=== PATIENT | female | born 1970 | race American Indian/Alaskan Native ===

== ENCOUNTER 2021-07-23 08:13 | Day surgery (SDC) | payer OTHER ==
[~2021-07-23 08:13] MED LIST: SODIUM CHLORIDE 0.9% 1000 ML 1,000 ML IV SCH
--- NOTE | 2021-07-23 09:30 | Anesthesia Consultation ---
Anesthesia Consult and Med Hx Date of service: 07/23/21 - Airway Anesthetic Teeth Evaluation: Good ROM Head & Neck: Adequate Mental/Hyoid Distance: Adequate Mallampati Class: Class II Intubation Access Assessment: Good - Pre-Operative Health Status ASA Pre-Surgery Classification: ASA1 Proposed Anesthetic Plan: MAC - Pulmonary Hx Smoking: No - Hematic Hx Sickle Cell Disease: No - Other Systems Hx Obesity: No
--- NOTE | 2021-07-23 09:30 | Anesthesia Day of Surgery ---
Anesthesia Day of Surgery - Day of Surgery Patient Examined: Yes Patient H&P Reviewed: Yes Patient is NPO: Yes
[2021-07-23] MEDS ORDERED: propofoL 200 MG/20 ML VIAL IV ONE (10:06)
[2021-07-23] MEDS ORDERED: LIDOCAINE MPF (2%) 20 MG/1 ML VIAL 5 ML ONE (10:06)
--- NOTE | 2021-07-23 10:28 | Procedure Note ---
Date of procedure: 07/23/21 Pre-op diagnosis: Colon Polyp Screening Post-op diagnosis: other (Normal Colon Mucosa/ Normal Termninal Ileal Mucosa/No colon Polyps or diverticular Disease or Internal Hemorrhoids noted) Procedure: Colonoscopy Anesthesia: MAC Surgeon: BOUCHRA LEAHY Estimated blood loss: none Pathology: none Condition: stable Disposition: same day (Resume home medication and F/U in 1 to 2weeks ([phone]).)
--- NOTE | 2021-07-23 10:40 | Operative Report ---
DATE OF SURGERY: 07/23/2021 PROCEDURE: Colonoscopy. INDICATIONS: A 51-year-old female originally from [facility], who is having a colonoscopy done because of her age. She otherwise has no other GI symptoms. DESCRIPTION OF PROCEDURE: Procedure was done after getting informed consent with MAC anesthesia. Initial rectal exam was unremarkable. The instrument was passed through the rectum onto the cecum, which was identified with ileocecal valve and the appendiceal orifice. Visualization was fair to good. The terminal ileum was intubated, showed normal mucosa. Cecum, ascending colon, transverse colon, descending colon and sigmoid showed normal mucosa. There was no evidence of any polyps, colitis or diverticular disease and the rectum appeared normal on the retroverted view. There were no biopsies done. There was no bleeding associated with the procedure. No complications associated with the procedure. ASSESSMENT: Colon polyp screening, normal colon, normal colon mucosa. No diverticular disease. No internal hemorrhoids noted. PLAN: To resume previous home medication and follow up in the office in 1-2 weeks' time. TID: [id number] RECEIPT: [id number] EDGAR
[2021-07-23 11:50] VITALS: BP 133/80
--- NOTE | 2021-07-23 12:36 | Post Anesthesia Evaluation ---
- Post Anesthesia Evaluation Patient Participated: Yes Airway Patent: Yes Stable Respiratory Function: Yes Nausea/Vomiting: No Temp > 96.8F: Yes Pain Manageable: Yes Adequeate Hydration: Yes Anesthesia Complications: No Block Receding Appropriately: Not Applicable Patient on Ventilator: No
--- NOTE | 2021-09-18 16:43 | Operative Report ---
DATE OF SURGERY: 07/23/2021 PROCEDURE: Colonoscopy. INDICATIONS: This is a 51-year-old female originally from [facility] in otherwise good health, who has a prior surgery, which included a . She underwent a colonoscopy as part of colon polyp screening on 07/23/2021. DESCRIPTION OF PROCEDURE: Procedure was done after getting informed consent with MAC anesthesia. Initial rectal examination was unremarkable. The instrument was passed through the rectum onto the cecum, which was identified with ileocecal valve and appendiceal orifice. Visualization was fair to good. The cecum, ascending colon, transverse colon, descending colon, and sigmoid showed normal mucosa. There was no evidence of any colon polyps, diverticular disease or internal hemorrhoids. ASSESSMENT: Colon polyp screening, normal colon. No colon polyps. No diverticular disease or no internal hemorrhoids noted. The patient has been asked to resume previous medication and follow up in the office in 1-2 weeks' time. Procedure was done in the GI lab with assistance of the GI lab team, which included the GI nurse, the operating room technologist and with assistance of anesthesia. TID: [id number] RECEIPT: [id number] MELANIE/RUBEN
== END 2021-07-23 11:10 | disposition home or self-care (01) ==
LOC: GIO 08:13
DX: Z12.11 Encounter for screening for malignant neoplasm of colon (principal); K63.89 Other specified diseases of intestine; Z79.899 Other long term (current) drug therapy; Z98.890 Other specified postprocedural states
CPT/HCPCS: 45378; J2704; J7030